=== PATIENT | male | born 1995 | race Two or more races ===

== ENCOUNTER 2019-08-21 14:24 | Emergency (ER) | payer OTHER ==
[2019-08-21 14:33] VITALS: BP 104/54; PULSE 79; TEMP 98.3; BMI 18.1
--- NOTE | 2019-08-21 14:40 | PDOC ---
History of Present Illness - General Stated Complaint: PINK EYE Time Seen by Provider: 08/21/19 14:28 History Source: Patient Exam Limitations: No Limitations Past History - Travel Traveled outside of the country in the last 30 days: No Close contact w/someone who was outside of country & ill: No - Past Medical History Allergies/Adverse Reactions: Allergies Allergy/AdvReac Type Severity Reaction Status Date / Time No Known Allergies Allergy Verified 08/21/19 14:29 Home Medications: Ambulatory Orders Erythromycin 0.5% Eye Ointment [Erythromycin 0.5% Eye Ointment -] 1 applic OU TID #1 tube 08/21/19 Review of Systems - Review of Systems Able to Perform ROS?: Yes Is the patient limited Slovenian proficient: No Constitutional: No: Chills, Fever, Weakness HEENTM: Yes: Other (redness to the eyes b/l). No: Eye Pain, Blurred Vision, Tearing, Ear Pain, Throat Pain Respiratory: No: Cough, Shortness of Breath, Wheezing Integumentary: No: Erythema, Pruritus, Rash Neurological: No: Headache, Paresthesia, Tremors *Physical Exam - Physical Exam General Appearance: Yes: Nourished, Appropriately Dressed. No: Apparent Distress HEENT: positive: EOMI, JOSE, Normal Voice, Symmetrical, Pharynx Normal, Other ( conjunctiva pink at the medial canthus b/l. No drainage noted) Neck: positive: Trachea midline, Supple. negative: Tender, Rigid, Lymphadenopathy (R), Lymphadenopathy (L) Integumentary: positive: Normal Color, Dry, Warm Neurologic: positive: Fully Oriented, Alert, Normal Mood/Affect, Normal Response Medical Decision Making - Medical Decision Making 08/21/19 14:33 The patient is a 24 y/o M who presents to the ER for b/l eye redness for three days. He states his eyes are itchy and he wakes up with discharge b/l. Denies foreign objects getting in his eye. Denies visual changes, fever, sore throat, and ear ache. A/P: conjunctivitis On exam the medial canthus of the eyes red b/l, no obvious drainage Will treat as conjunctivitis DC home with PCP follow up. Discharge - Discharge Information Problems reviewed: Yes Clinical Impression/Diagnosis: Conjunctivitis Qualifiers: Conjunctivitis type: acute Acute conjunctivitis type: unspecified Laterality: bilateral Qualified Code(s): H10.33 - Unspecified acute conjunctivitis, bilateral Disposition: HOME - Admission No - Follow up/Referral Referrals: Jayant Villegas MD [Staff Physician] - - Patient Discharge Instructions Patient Printed Discharge Instructions: DI for Conjunctivitis Additional Instructions: You were seen for conjunctivitis. Please use the eye ointment for one week as directed or until your symptoms go away. Use warm compresses on the area. Do not wear contacts until your symptoms have resolved Stop using the visine drops Follow up with your primary care doctor this week. Return to the ER for any new or worsening symptoms - Post Discharge Activity Work/Back to School Note: Back to School
== END 2019-08-21 14:47 | disposition home or self-care (01) ==
LOC: JER 14:24
DX: H10.33 Unspecified acute conjunctivitis, bilateral (principal)
CPT/HCPCS: 99281-25

== ENCOUNTER 2019-09-10 19:03 | Emergency (ER) | payer OTHER ==
[2019-09-10] MEDS ORDERED: IBUPROFEN 600 MG TABLET (FP) PO ONE ×2 (19:55→20:14)
[2019-09-10 19:59] VITALS: BP 102/69; PULSE 83; TEMP 100; BMI 18.1
--- NOTE | 2019-09-10 20:02 | PDOC ---
Rapid Medical Evaluation Time Seen by Provider: 09/10/19 19:54 Medical Evaluation: Allergies Allergy/AdvReac Type Severity Reaction Status Date / Time No Known Allergies Allergy Verified 08/21/19 14:29 09/10/19 19:54 Pt presents for fever and sore throat since Monday Exam; erythematous tonsils Orders: motrin; rapid strep Pt to proceed to the ER for further evaluation Discharge Disposition - Diagnosis Throat pain - Referrals - Patient Instructions - Post Discharge Activity
--- NOTE | 2019-09-10 20:10 | PDOC ---
History of Present Illness - General Chief Complaint: Cold Symptoms Stated Complaint: FEVER/EVALUATION Time Seen by Provider: 09/10/19 19:54 - History of Present Illness Initial Comments: 09/10/19 20:09 24-year-old male with flulike symptoms x4 days Past History - Past Medical History Allergies/Adverse Reactions: Allergies Allergy/AdvReac Type Severity Reaction Status Date / Time No Known Allergies Allergy Verified 08/21/19 14:29 Home Medications: Ambulatory Orders Erythromycin 0.5% Eye Ointment [Erythromycin 0.5% Eye Ointment -] 1 applic OU TID #1 tube 08/21/19 COPD: No - Immunization History Immunization Up to Date: No - Psycho Social/Smoking Cessation Hx Smoking History: Never smoked Have you smoked in the past 12 months: No Hx Alcohol Use: No Drug/Substance Use Hx: No Review of Systems - Review of Systems Constitutional: Yes: Fever HEENTM: Yes: Nose Congestion Respiratory: Yes: Cough *Physical Exam - Vital Signs Last Vital Signs Temp Pulse Resp BP Pulse Ox 100.0 F H 83 20 102/69 99 09/10/19 19:53 09/10/19 19:53 09/10/19 19:53 09/10/19 19:53 09/10/19 19:53 - Physical Exam 09/10/19 20:10 GENERAL: The patient is awake, alert, and fully oriented, in no acute distress. HEAD: Normal with no signs of trauma. EYES: sclera anicteric, conjunctiva clear. ENT: Ears normal tympanic membranes normal oropharynx clear with mild injection uvula midline NECK: Normal range of motion LUNGS: Breath sounds equal, clear to auscultation bilaterally. No wheezes, and no crackles. HEART: S1 and S2 without murmur, rub or gallop. ABDOMEN: Soft, nontender, normoactive bowel sounds. No guarding, no rebound. No masses. EXTREMITIES: Normal range of motion, no edema. No clubbing or cyanosis. No cords, erythema, or tenderness. NEUROLOGICAL: Cranial nerves II through XII grossly intact. PSYCH: Normal mood, normal affect. SKIN: Warm, Dry, normal turgor, no rashes or lesions noted. Medical Decision Making - Medical Decision Making 09/10/19 20:43 Supportive care for viral upper respiratory infection out of the window for Tamiflu. Discharge - Discharge Information Problems reviewed: Yes Clinical Impression/Diagnosis: Throat pain, Viral URI with cough Condition: Stable Disposition: HOME - Admission No - Follow up/Referral Referrals: Ricardo Fonseca MD [Staff Physician] - - Patient Discharge Instructions Additional Instructions: Tylenol and Motrin for body aches and fevers. Return to the emergency room for worsening symptoms. Without fail follow-up with your primary care physician in 1 to 2 days for further evaluation and treatment options. - Post Discharge Activity Work/Back to School Note: Back to Work
== END 2019-09-10 20:51 | disposition home or self-care (01) ==
LOC: JERFT 19:03
DX: J06.9 Acute upper respiratory infection, unspecified (principal); B97.89 Other viral agents as the cause of diseases classified elsewhere
CPT/HCPCS: 87070; 87880; 99282-25